=== PATIENT | female | born 1970 | race Caucasian/White ===

== ENCOUNTER 2019-03-27 08:28 | Outpatient (CLI) | payer OTHER ==
--- NOTE | 2019-04-09 12:47 | Mammography Report ---
Reason: SCREENING MAMMO Procedure Date: 03/27/2019 Accession Number: [id number] / [id number] Procedure: [facility] - Screening Mammo w/John CPT Code: Final Report FULL RESULT: EXAM: Screening Mammo w/John DATE: 03/27/2019 9:20 AM CLINICAL HISTORY: Routine screening. No reported personal history of breast cancer. Family history paternal aunt age 50. History of prior implant removal in 2013. TECHNIQUE: (B) - Bilateral CC and MLO views were obtained. COMPARISON: None at the time of this dictation. If comparison images become available, an addendum to this report will be issued. PARENCHYMAL PATTERN: (D) - The breasts demonstrate heterogeneously dense fibroglandular parenchyma bilaterally. FINDINGS: Bilateral breasts: There are expected symmetric changes status post bilateral implant removal. There are no suspicious masses, calcifications, or areas of nonoperative distortion. IMPRESSION: Benign findings. BI-RADS category 2. RECOMMENDATION: (ANNUAL) - Recommend routine annual screening mammography. BI-RADS CATEGORY: STANDARD QUALIFYING STATEMENTS: 1. This examination was not reviewed with the aid of Computer-Aided Detection (CAD). 2. A negative or benign imaging report should not preclude biopsy if clinically suspicious findings are present. 3. Dense breasts may obscure an underlying neoplasm. 4. This examination was reviewed with the aid of 3D breast imaging (tomosynthesis).
== END 2019-03-27 08:29 | disposition home or self-care (01) ==
LOC: DI 08:28
PROVIDERS: ATTEND Naturopath
DX: Z12.31 Encounter for screening mammogram for malignant neoplasm of breast (principal); Z80.3 Family history of malignant neoplasm of breast
CPT/HCPCS: 77063; 77067